=== PATIENT | female | born 1970 | race Caucasian/White ===

== ENCOUNTER 2022-10-06 19:10 | Outpatient (CLI) | payer OTHER, SELFPAY | END 2022-10-06 19:11 | disposition home or self-care (01) | PROVIDERS: Visit Provider Emergency Medicine Emergency Medical Services | DX: S09.93XA Unspecified injury of face, initial encounter (principal); V89.2XXA Person injured in unspecified motor-vehicle accident, traffic, initial encounter; Y92.410 Unspecified street and highway as the place of occurrence of the external cause | CPT/HCPCS: A0425; A0427 ==

== ENCOUNTER 2022-10-06 19:56 | Emergency (ER) | payer OTHER, SELFPAY ==
[2022-10-06] VITALS (14 sets, daily range): BP systolic 110–159; BP diastolic 41–90; PULSE 96–112; RESP 18–22; TEMP 36.8; O2SAT 95–99
--- NOTE | 2022-10-06 20:00 | ED.NURSE ---
Pt log-rolled and MD assessing back. Backboard removed.
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
[2022-10-06] MEDS: HYDROmorphone 0.5 mg/0.5 ml inj IVP (21:49)
== END 2022-10-06 22:50 | disposition home or self-care (01) ==
PROVIDERS: Emergency Provider Emergency Medicine Emergency Medical Services
DX: K13.29 Other disturbances of oral epithelium, including tongue (principal); V43.62XA Car passenger injured in collision with other type car in traffic accident, initial encounter
CPT/HCPCS: 36415; 70450; 71045; 72125; 76604; 76705; 93005; 93308; 96374; 99283; 99285; 99291; G0390; J1170

== ENCOUNTER 2023-01-12 09:29 | Outpatient (CLI) | payer OTHER, SELFPAY ==
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
== END 2023-01-12 09:30 | disposition home or self-care (01) ==
PROVIDERS: PCP Nurse Practitioner Family; Visit Provider Internal Medicine
DX: R13.10 Dysphagia, unspecified (principal)
CPT/HCPCS: 74230; 92611; T1013

== ENCOUNTER 2024-05-29 17:28 | Emergency (ER) | payer MEDICAID, SELFPAY ==
[2024-05-29] VITALS (7 sets, daily range): BP systolic 110–145; BP diastolic 58–74; PULSE 85–98; RESP 18; TEMP 37.2–38.8; O2SAT 94–95
[2024-05-29 18:54] LABS: PCR FLU A Negative PCR FLU A (Negative); PCR FLU B Negative PCR FLU B (Negative); PCR RSV Negative PCR RSV (Negative); SARS PCR* POSITIVE SARS-CoV-2 (Negative)
[2024-05-29] MEDS: METOCLOPRAMIDE HCL 5 MG/ML INJ 10 MG IVP (19:05)
[2024-05-29] MEDS: LACTATED RINGERS 1000 ML 1,000 ML IV (19:05)
[2024-05-29] MEDS: KETOROLAC 15 MG/ML inj IVP (19:07)
--- NOTE | 2024-05-29 19:09 | ED_ITS ---
HPI - General Adult General Date Seen: 05/29/24 Chief complaint: Fever Stated complaint: fever, vomiting Time Seen by Provider: 05/29/24 18:31 Source: patient and edge polisher Mode of arrival: ambulatory Limitations: no limitations History of Present Illness HPI narrative: Patient is a 54-year-old female with a history of depression, diabetes presenting to the emergency department for fevers, chills, headache, nausea. Patient states for the past 2 days she has been developing all the symptoms is states she has been having a severe headache and her forehead that is been getting worse. She states she has had headaches in the past but never this bad. She states she feels very dehydrated and every time she has tried to eat or drink anything since yesterday she would vomited back up. States she currently is feeling nauseated and feels like her whole body is sore. Has a colleague that has been having similar symptoms. Has not had any [id number] treatment yet. Denies abdominal pain, diarrhea, constipation, chest pain, shortness of breath. Does states she feels weak and fatigued. Is not having any numbness or vision changes. Related Data Home Medications ?Medication ?Instructions ?Recorded ?Confirmed Unobtainable 10/07/22 10/07/22 Allergies Allergy/AdvReac Type Severity Reaction Status Date / Time No Known Drug Allergies Allergy Verified 10/07/22 02:20 Review of Systems Status of ROS: Reports: 10 or more systems reviewed and unremarkable except as noted in History and below [facility] Medical History Dysphagia ?R13.10 - Dysphagia, unspecified (ICD-10) Social History Smoking Status: Never smoker Second hand tobacco smoke exposure: No How often do you have a drink containing alcohol: never AUDIT-C Alcohol total score: 0 Non-prescribed substance use: denies use Exam Narrative: Exam Narrative: Const: Well-nourished, Well-developed, in mild distress Eyes: PERRL, no conjunctival injection, and symmetrical lids HENT: Atraumatic external nose and ears. Moist mucous membranes. Neck: Symmetric, trachea midline, No thyromegaly. CVS: RRR, No murmurs or gallops. Peripheral pulses 2+ and equal in all extremities RESP: Unlabored respiratory effort. Clear to auscultation bilaterally. GI: Nontender/Nondistended, No rebound or guarding. MSK:Extremities w/o deformity, Normal Active ROM Skin: Warm, Dry. No rashes or lesions. Neuro: Normal Muscle tone, No focal neurological deficits. Psych: Awake, Alert, & Oriented x3. Appropriate mood and affect. Const: Vital Signs, click to edit/add: Vital Signs - 24 hr 05/29/24 17:56 05/29/24 19:07 05/29/24 19:49 Temperature 101.9 F H 101.9 F H 99.0 F Pulse Rate [Pulse Oximeter] 98 Respiratory Rate 18 18 Blood Pressure [Le ft Arm] 145/74 H Blood Pressure [Ri ght Upper Arm] 137/74 Pulse Oximetry 94 94 Oxygen Delivery Me thod Room Air Room Air 05/29/24 20:34 Temperature 99.0 F Pulse Rate [Pulse Oximeter] Respiratory Rate Blood Pressure [Le ft Arm] Blood Pressure [Ri ght Upper Arm] Pulse Oximetry Oxygen Delivery Me thod Course Vital Signs Vital signs: Initial Vital Signs Temperature 101.9 F H 05/29/24 17:56 Temperature Source Temporal Artery Scan 05/29/24 17:56 Pulse Rate 98 05/29/24 17:56 Respiratory Rate 18 05/29/24 17:56 Blood Pressure 137/74 05/29/24 17:56 Blood Pressure Mean 95 05/29/24 17:56 Pulse Oximetry 94 05/29/24 17:56 Oxygen Delivery Method Room Air 05/29/24 17:56 Vital Signs Temperature 101.9 F H 05/29/24 17:56 Pulse Rate 98 05/29/24 17:56 Respiratory Rate 18 05/29/24 17:56 Blood Pressure 137/74 05/29/24 17:56 Pulse Oximetry 94 05/29/24 17:56 Oxygen Delivery Method Room Air 05/29/24 17:56 Temperature 99.0 F 05/29/24 20:34 Pulse Rate 98 05/29/24 17:56 Respiratory Rate 18 05/29/24 19:49 Blood Pressure 145/74 H 05/29/24 19:49 Pulse Oximetry 94 05/29/24 19:49 Oxygen Delivery Method Room Air 05/29/24 19:49 Medications Administered Medications: Discontinued Medications Generic Name Dose Route Start Last Admin Trade Name Julieta PRN Reason Stop Dose Admin Diphenhydramine HCl 25 mg 05/29/24 18:55 05/29/24 19:10 Diphenhydramine 50 Mg/Ml Inj IVP 05/29/24 18:56 25 mg ONCE ONE Administration Lactated Ringer's 1,000 mls @ 1,000 mls/hr 05/29/24 18:55 05/29/24 20:35 Lactated Ringers 1000 Ml IV 05/29/24 19:54 Infused .Q1H ONE Infusion Ketorolac Tromethamine 15 mg 05/29/24 18:55 05/29/24 19:07 Ketorolac 15 Mg/Ml Inj IVP 05/29/24 18:56 15 mg ONCE ONE Administration Metoclopramide HCl 10 mg 05/29/24 18:55 05/29/24 19:05 Metoclopramide Hcl 5 Mg/Ml Inj IVP 05/29/24 18:56 10 mg ONCE ONE Administration Medical Decision Making [facility] Narrative Medical decision making narrative: Patient is a 54-year-old female presenting for what sounds like bile leak symptoms. She has a headache but has been gradually getting worse and the maximal impulse was not immediate so subarachnoid hemorrhage seems unlikely. COVID/flu/RSV test was done and came back positive while I was speaking to the patient's is likely the cause of all of her symptoms. She has been having a lot of vomiting dehydration dose I will do a CBC and BMP to make sure her electrolytes and other lab work showed no concerning findings. I do not believe headache imaging is necessary at this time is as symptoms are all again likely from her COVID. Will do a migraine cocktail including lactated Ringer's, Toradol, Reglan, Benadryl. Patient is feeling better after medication. CBC and BMP showed no concerning abnormalities potassium slightly low and this was replenished. He is she has some mild pancytopenia likely from the COVID. She has been well this time will be discharged. Toradol and Zofran prescribed through [employer]. She is agreeable to this plan. Lab Data Labs: Lab Results 05/29/24 05/29/24 Range/Units 18:03 19:12 WBC 3.26 L (4.50-11.00) K/uL RBC 3.94 L (4.00-5.20) m/uL Hgb 11.4 L (12.0-16.0) gm/dL Hct 34.8 (33.0-51.0) % MCV 88 (80-100) fL MCH 29 (26-34) pg MCHC 33 (32-36) gm/dL RDW Coeff of Shravan 13.1 (11.5-15.5) % Plt Count 123 L (140-440) K/uL Neut % (Auto) 69.4 (42.0-72.0) % Lymph % (Auto) 17.2 L (20-44) % Craig % (Auto) 11.3 H (0.0-11.0) % Eos % (Auto) 1.5 (0.0-7.0) % Baso % (Auto) 0.3 (0.0-3.0) % Neut # (Auto) 2.30 (1.7-7.0) K/uL Lymph # (Auto) 0.60 L (0.90-2.90) K/uL Craig # (Auto) 0.40 (0.00-0.90) K/UL Eos # (Auto) 0.00 (0.00-0.50) K/uL Baso # (Auto) 0.00 (0.00-0.30) K/uL Abs Immat Gran (auto) 0.00 (0.00-0.30) K/uL Imm/Tot Granulo (auto) 0.3 % Sodium 140 (135-149) mmol/L Potassium 3.2 L (3.6-5.1) mmol/L Chloride 106 (96-114) mmol/L Carbon Dioxide 29 (20-32) mmol/L Anion Gap 5 L (7-15) mEq/L BUN 14 (7-30) mg/dL Creatinine 0.6 (0.5-1.5) mg/dL Estimated GFR 106 ml/min Glucose 94 (60-115) mg/dL Calcium 9.7 (8.4-10.6) mg/dL SARS-CoV-2 (PCR) POSITIVE SARS-CoV-2 A (Negative) Influenza Type A (PCR) Negative PCR FLU A (Negative) Influenza Type B (PCR) Negative PCR FLU B (Negative) RSV (PCR) Negative PCR RSV (Negative) Discharge Plan Discharge Clinical Impression: COVID Patient Disposition: Home, Self-Care Condition: Improved Instructions: COVID-19 (Coronavirus Disease 2019) (ED) Additional Instructions: Take Tylenol and the Toradol for her headache. Make sure stay well hydrated use Zofran as needed for nausea. Return to emergency department for new or worsening symptoms. Make sure quarantine for 5 days from the onset of his symptoms. Do not take ibuprofen, naproxen, other NSAIDs while taking Toradol as they are the same class of drugs. Prescriptions: No Action Unobtainable Follow Up/Referrals: Gabrielle Avalos [Primary Care Provider] - Stand Alone Forms: [employer] Info Instructions
[2024-05-29] MEDS: diphenhydrAMINE 50 MG/ML inj 25 MG IVP (19:10)
[2024-05-29 19:36] LABS: Basophils Percent Auto 0.3 % (0.0-3.0); Eosinophils Percent Auto 1.5 % (0.0-7.0); Hematocrit 34.8 % (33.0-51.0); Hemoglobin* 11.4 gm/dL (12.0-16.0); Immature Granulocytes Pct Auto 0.3 %; Lymphocytes Percent Auto 17.2 % (20-44); Mean Corpuscular HGB Conc 33 gm/dL (32-36); Mean Corpuscular Hemoglobin 29 pg (26-34); Mean Corpuscular Volume 88 fL (80-100); Monocytes Percent Auto 11.3 % (0.0-11.0); Neutrophils Percent Auto 69.4 % (42.0-72.0); Platelet Count* 123 K/uL (140-440); RDW Coefficient of Variation % 13.1 % (11.5-15.5); Red Blood Count 3.94 m/uL (4.00-5.20); White Blood Count* 3.26 K/uL (4.50-11.00)
[2024-05-29 19:39] LABS: Slide Review Reflex No
[2024-05-29 19:42] LABS: Chloride* 106 mmol/L (96-114); Potassium* 3.2 mmol/L (3.6-5.1); Sodium* 140 mmol/L (135-149)
[2024-05-29 19:44] LABS: Creatinine* 0.6 mg/dL (0.5-1.5); Estimated Glomerular Filt Rate 106 ml/min
[2024-05-29 19:45] LABS: Anion Gap 5 mEq/L (7-15); Blood Urea Nitrogen* 14 mg/dL (7-30); Calcium* 9.7 mg/dL (8.4-10.6); Carbon Dioxide* 29 mmol/L (20-32); Glucose* 94 mg/dL (60-115)
[2024-05-29] MEDS: POTASSIUM CHLORIDE 10 MEQ CAPSULE ER 40 MEQ PO (20:50)
== END 2024-05-29 21:17 | disposition home or self-care (01) ==
PROVIDERS: Emergency Provider Student in an Organized Health Care Education/Training Program; PCP Nurse Practitioner Family
DX: U07.1 COVID-19 (principal)
CPT/HCPCS: 36415; 80048; 85025; 87631; 94761; 96374; 96375; 99283; 99284; A9270; J1200; J1885; J2765; J7120

== ENCOUNTER 2024-06-03 15:34 | Emergency (ER) | payer MEDICAID, SELFPAY ==
[2024-06-03 15:48] VITALS: BP 118/74; PULSE 68; RESP 14; TEMP 35.9; O2SAT 97
[2024-06-03 17:41] LABS: SARS Antigen* Negative (Negative)
--- NOTE | 2024-06-03 18:34 | ED.GENADULT ---
HPI - General Adult General Chief complaint: Unspecified Complaint, Adult Stated complaint: Covid - needs work note Time Seen by Provider: 06/03/24 18:14 History of Present Illness HPI narrative: This 54-year-old female is coming in simply to receive a note allowing her to return to work the. She apparently was positive for COVID and wants a note stating that she is now negative and okay to return to work. Related Data Home Medications ?Medication ?Instructions ?Recorded ?Confirmed Unobtainable 10/07/22 10/07/22 Allergies Allergy/AdvReac Type Severity Reaction Status Date / Time No Known Drug Allergies Allergy Verified 10/07/22 02:20 Review of Systems Status of ROS: Reports: 10 or more systems reviewed and unremarkable except as noted in History and below Narrative: Constitutional: No fevers, no weight gain or loss. Eyes: No discharge. No vision changes. HENT: No congestion, no sore throat, no ear pain. Cardiovascular: No chest pain, no palpitations. Respiratory: No shortness of breath, no wheezes, no cough. Gastrointestinal: No abdominal pain, no vomiting, no diarrhea. Genitourinary: No dysuria, no hematuria. Musculoskeletal: Normal range of motion. Skin: No rashes, no pruritis. Neurological: No dizziness, weakness, sensory change, speech change. Endo/Heme/Allergies: No bruising or bleeding. No polydipsia. Pysch: no suicidality, no anxiety, no insomnia. All other systems reviewed and are negative. [facility] Medical History Dysphagia ?R13.10 - Dysphagia, unspecified (ICD-10) Social History Smoking Status: Never smoker Second hand tobacco smoke exposure: No How often do you have a drink containing alcohol: never AUDIT-C Alcohol total score: 0 Non-prescribed substance use: denies use Exam Narrative: Exam Narrative: Constitutional: Well-developed, well-nourished, no acute distress. HEENT: Normocephalic, atraumatic. Neck: Normal range of motion. Nontender. Supple. Heart: Intact distal pulses. Lungs: No chest discomfort. No wheezes, rhonchi, or rales. Abdomen: Nontender. Back: Normal range of motion. Extremities: Normal range of motion. No injury. Skin: Intact. No rash. Warm. No erythema or pallor. Neurologic: No altered sensation. No weakness. Alert and oriented. Psychiatric: No suicidality. No anxiety or depression. No insomnia. Nursing notes and vitals signs are reviewed. Const: Vital Signs, click to edit/add: Vital Signs - 24 hr 06/03/24 15:48 Temperature 96.7 F L Pulse Rate [Pulse Oximeter] 68 Respiratory Rate 14 Blood Pressure [Ri ght Upper Arm] 118/74 Pulse Oximetry 97 Oxygen Delivery Me thod Room Air Course Vital Signs Vital signs: Initial Vital Signs Temperature 96.7 F L 06/03/24 15:48 Temperature Source Temporal Artery Scan 06/03/24 15:48 Pulse Rate 68 06/03/24 15:48 Pulse Rhythm Regular 06/03/24 15:48 Respiratory Rate 14 06/03/24 15:48 Blood Pressure 118/74 06/03/24 15:48 Blood Pressure Mean 88 06/03/24 15:48 Blood Pressure Position Sitting 06/03/24 15:48 Pulse Oximetry 97 06/03/24 15:48 Oxygen Delivery Method Room Air 06/03/24 15:48 Vital Signs Temperature 96.7 F L 06/03/24 15:48 Pulse Rate 68 06/03/24 15:48 Respiratory Rate 14 06/03/24 15:48 Blood Pressure 118/74 06/03/24 15:48 Pulse Oximetry 97 06/03/24 15:48 Oxygen Delivery Method Room Air 06/03/24 15:48 Temperature 96.7 F L 06/03/24 15:48 Pulse Rate 68 06/03/24 15:48 Respiratory Rate 14 06/03/24 15:48 Blood Pressure 118/74 06/03/24 15:48 Pulse Oximetry 97 06/03/24 15:48 Oxygen Delivery Method Room Air 06/03/24 15:48 Medical Decision Making MDM Narrative Medical decision making narrative: This patient is simply requesting a return to work note and presents to the emergency department for this reason only. A COVID test was administered and returns negative. I did provide such a note as requested and the patient is okay to be discharged to resume activity as tolerated. Lab Data Labs: Lab Results 06/03/24 Range/Units 16:45 SARS-CoV-2 Ag (Rapid) Negative (Negative) Discharge Plan Discharge Clinical Impression: Lab test negative for COVID-19 virus Patient Disposition: Home, Self-Care Condition: Stable Additional Instructions: Activity as tolerated. Use [id number] medicines as needed and directed. Okay to return to work. Follow up with MD return if worsening. Prescriptions: No Action Unobtainable Follow Up/Referrals: Gabrielle Avalos [Primary Care Provider] - Stand Alone Forms: [employer] Info Instructions
== END 2024-06-03 18:44 | disposition home or self-care (01) ==
LOC: ED 18:40
PROVIDERS: Family Medicine; Emergency Provider Emergency Medicine Emergency Medical Services; PCP Nurse Practitioner Family
DX: Z09 Encounter for follow-up examination after completed treatment for conditions other than malignant neoplasm (principal)
CPT/HCPCS: 87426; 99282; 99284

== ENCOUNTER 2024-07-24 11:37 | Emergency (ER) | payer MEDICAID, SELFPAY ==
[2024-07-24 11:57] VITALS: BP 100/70; PULSE 100; RESP 18; TEMP 37.3; O2SAT 98; BMI 48.3
[2024-07-24] MEDS: 0.9 % SODIUM CHLORIDE 500 ML 500 ML IV (12:42)
[2024-07-24] MEDS: ONDANSETRON 2 MG/ML inj 4 MG IVP (12:42)
--- NOTE | 2024-07-24 12:43 | ED_ITS ---
HPI - Nausea/Vomiting/Diarrhea General Chief complaint: Nausea/Vomiting Stated complaint: felt sick at work, blood pressure high Time Seen by Provider: 07/24/24 12:17 History of Present Illness HPI Narrative: This 54-year-old female comes in because of onset of nausea and vomiting while at work just prior to arrival. She does not report any diarrhea or fevers. She arrives here with normal vital signs however her systolic pressure is a bit soft at 100/70. She states that she has diabetes but has not checked her glucose for a month or more. Related Data Home Medications ?Medication ?Instructions ?Recorded ?Confirmed levothyroxine 25 mcg capsule 20 mcg PO QDAY 06/27/24 07/03/24 metformin 500 mg tablet 500 mg PO TID 06/27/24 07/03/24 Previous Rx's ?Medication ?Instructions ?Recorded isosorbide dinitrate 5 mg tablet 10 mg (2 x 5 mg) PO BID #60 tabs 07/17/24 ondansetron HCl 4 mg tablet 4 mg PO Q6H #10 tabs 07/24/24 Allergies Allergy/AdvReac Type Severity Reaction Status Date / Time No Known Drug Allergies Allergy Verified 07/03/24 15:24 Review of Systems Status of ROS: Reports: 10 or more systems reviewed and unremarkable except as noted in History and below Narrative: Constitutional: No fevers, no weight gain or loss. Eyes: No discharge. No vision changes. HENT: No congestion, no sore throat, no ear pain. Cardiovascular: No chest pain, no palpitations. Respiratory: No shortness of breath, no wheezes, no cough. Gastrointestinal: No abdominal pain, no diarrhea. Nausea and vomiting as described above. Genitourinary: No dysuria, no hematuria. Musculoskeletal: Normal range of motion. Skin: No rashes, no pruritis. Neurological: No dizziness, weakness, sensory change, speech change. Endo/Heme/Allergies: No bruising or bleeding. No polydipsia. Pysch: no suicidality, no anxiety, no insomnia. All other systems reviewed and are negative. [facility] Medical History (Updated 07/24/24 @ 13:50 by Juan Carlos Bustos MD) Esophageal dysmotility ?K22.4 - Dyskinesia of esophagus (ICD-10) Dysphagia ?R13.10 - Dysphagia, unspecified (ICD-10) Social History Smoking Status: Never smoker Second hand tobacco smoke exposure: No How often do you have a drink containing alcohol: never AUDIT-C Alcohol total score: 0 Non-prescribed substance use: denies use Little interest or pleasure in doing things: not at all Feeling down, depressed, or hopeless: not at all Exam Narrative: Exam Narrative: Constitutional: Well-developed, well-nourished, no acute distress. HEENT: Normocephalic, atraumatic. Neck: Normal range of motion. Nontender. Supple. Heart: Regular. No murmurs. Normal rate. Intact distal pulses. Lungs: Clear to auscultation. No chest discomfort. No wheezes, rhonchi, or rales. Abdomen: Normal bowel sounds. Nontender. No rebound tenderness. Genitalia: Deferred. Back: No midline tenderness. Normal range of motion. Extremities: Normal range of motion. No injury. Skin: Intact. No rash. Warm. No erythema or pallor. Neurologic: No altered sensation. No weakness. Alert and oriented. Psychiatric: No suicidality. No anxiety or depression. No insomnia. Nursing notes and vitals signs are reviewed. Const: Vital Signs, click to edit/add: Vital Signs - 24 hr 07/24/24 11:57 Temperature 99.2 F Pulse Rate [Pulse Oximeter] 100 Respiratory Rate 18 Blood Pressure [Ri ght Upper Arm] 100/70 Pulse Oximetry 98 Oxygen Delivery Me thod Room Air Course Vital Signs Vital signs: Initial Vital Signs Temperature 99.2 F 07/24/24 11:57 Temperature Source Temporal Artery Scan 07/24/24 11:57 Pulse Rate 100 07/24/24 11:57 Pulse Rhythm Regular 07/24/24 11:57 Respiratory Rate 18 07/24/24 11:57 Blood Pressure 100/70 07/24/24 11:57 Blood Pressure Mean 80 07/24/24 11:57 Blood Pressure Position Sitting 07/24/24 11:57 Pulse Oximetry 98 07/24/24 11:57 Oxygen Delivery Method Room Air 07/24/24 11:57 Vital Signs Temperature 99.2 F 07/24/24 11:57 Pulse Rate 100 07/24/24 11:57 Respiratory Rate 18 07/24/24 11:57 Blood Pressure 100/70 07/24/24 11:57 Pulse Oximetry 98 07/24/24 11:57 Oxygen Delivery Method Room Air 07/24/24 11:57 Temperature 99.2 F 07/24/24 11:57 Pulse Rate 100 07/24/24 11:57 Respiratory Rate 18 07/24/24 11:57 Blood Pressure 100/70 07/24/24 11:57 Pulse Oximetry 98 07/24/24 11:57 Oxygen Delivery Method Room Air 07/24/24 11:57 Medications Administered Medications: Discontinued Medications Generic Name Dose Route Start Last Admin Trade Name Julieta PRN Reason Stop Dose Admin Sodium Chloride 500 mls @ 500 mls/hr 07/24/24 12:21 07/24/24 12:42 0.9 % Sodium Chloride 500 Ml IV 07/24/24 13:20 500 mls/hr .Q1H ONE Administration Ondansetron HCl 4 mg 07/24/24 12:21 07/24/24 12:42 Ondansetron 2 Mg/Ml Inj IVP 07/24/24 12:22 4 mg ONCE ONE Administration MDM - Nausea/Vomiting/Diarrhea MDM Narrative Medical decision making narrative: This patient comes in with onset of nausea and vomiting prior to arrival. She does have a systolic value of 100 upon arrival but does not report lightheadedness. She has not had any fever or diarrhea. An IV was established and she did receive 500 mL of normal saline intravenously. This also included a dose of Zofran 4 mg. Labs are acquired and these returned with reassuring findings. She does have diabetes and has not checked her blood glucose but this returns at 135 today. She is okay to be discharged home and states that she is feeling better. I did provide a prescription for Zofran. Lab Data Labs: Lab Results 07/24/24 Range/Units 12:35 WBC 4.26 L (4.50-11.00) K/uL RBC 4.01 (4.00-5.20) m/uL Hgb 11.6 L (12.0-16.0) gm/dL Hct 35.1 (33.0-51.0) % MCV 88 (80-100) fL MCH 29 (26-34) pg MCHC 33 (32-36) gm/dL RDW Coeff of Shravan 13.1 (11.5-15.5) % Plt Count 139 L (140-440) K/uL Neut % (Auto) 85.3 H (42.0-72.0) % Lymph % (Auto) 9.6 L (20-44) % Dare % (Auto) 4.7 (0.0-11.0) % Eos % (Auto) 0.2 (0.0-7.0) % Baso % (Auto) 0.2 (0.0-3.0) % Neut # (Auto) 3.60 (1.7-7.0) K/uL Lymph # (Auto) 0.40 L (0.90-2.90) K/uL Dare # (Auto) 0.20 (0.00-0.90) K/UL Eos # (Auto) 0.00 (0.00-0.50) K/uL Baso # (Auto) 0.00 (0.00-0.30) K/uL Abs Immat Gran (auto) 0.00 (0.00-0.30) K/uL Imm/Tot Granulo (auto) 0.0 % Sodium 137 (135-149) mmol/L Potassium 3.3 L (3.6-5.1) mmol/L Chloride 101 (96-114) mmol/L Carbon Dioxide 28 (20-32) mmol/L Anion Gap 8 (7-15) mEq/L BUN 15 (7-30) mg/dL Creatinine 0.8 (0.5-1.5) mg/dL Estimated Creat Clear 71.50 Estimated GFR 87 ml/min Glucose 135 H (60-115) mg/dL Calcium 9.2 (8.4-10.6) mg/dL Discharge Plan Discharge Clinical Impression: Gastroenteritis Additional Instructions: Take medication as prescribed and needed. Take fluids frequently and increase diet otherwise as tolerated. Follow up with MD return if worsening. Prescriptions: New ondansetron HCl 4 mg tablet 4 mg PO Q6H Qty: 10 0RF No Action metformin 500 mg tablet 500 mg PO TID levothyroxine 25 mcg capsule 20 mcg PO QDAY isosorbide dinitrate 5 mg tablet 10 mg PO BID Qty: 60 0RF Rx Instructions: allow nitrate-free interval of 12-14 hrs per 24-hr period Follow Up/Referrals: Marin Boggs MD [Primary Care Provider] - Stand Alone Forms: [employer] Info Instructions
[2024-07-24 12:51] LABS: Basophils Percent Auto 0.2 % (0.0-3.0); Eosinophils Percent Auto 0.2 % (0.0-7.0); Hematocrit 35.1 % (33.0-51.0); Hemoglobin* 11.6 gm/dL (12.0-16.0); Lymphocytes Percent Auto 9.6 % (20-44); Mean Corpuscular HGB Conc 33 gm/dL (32-36); Mean Corpuscular Hemoglobin 29 pg (26-34); Mean Corpuscular Volume 88 fL (80-100); Monocytes Percent Auto 4.7 % (0.0-11.0); Neutrophils Percent Auto 85.3 % (42.0-72.0); Platelet Count* 139 K/uL (140-440); RDW Coefficient of Variation % 13.1 % (11.5-15.5); Red Blood Count 4.01 m/uL (4.00-5.20); White Blood Count* 4.26 K/uL (4.50-11.00)
[2024-07-24 12:54] LABS: Slide Review Reflex No
[2024-07-24 13:12] LABS: Chloride* 101 mmol/L (96-114); Potassium* 3.3 mmol/L (3.6-5.1); Sodium* 137 mmol/L (135-149)
[2024-07-24 13:15] LABS: Anion Gap 8 mEq/L (7-15); Blood Urea Nitrogen* 15 mg/dL (7-30); Carbon Dioxide* 28 mmol/L (20-32); Creatinine* 0.8 mg/dL (0.5-1.5); Estimated Glomerular Filt Rate 87 ml/min; Glucose* 135 mg/dL (60-115)
[2024-07-24 13:16] LABS: Calcium* 9.2 mg/dL (8.4-10.6)
== END 2024-07-24 14:04 | disposition home or self-care (01) ==
PROVIDERS: Emergency Provider Emergency Medicine Emergency Medical Services; PCP Internal Medicine
DX: K52.9 Noninfective gastroenteritis and colitis, unspecified (principal)
CPT/HCPCS: 36415; 80048; 85025; 96361; 96374; 99284; J2405; J7030

== ENCOUNTER 2024-08-02 17:06 | Emergency (ER) | payer MEDICAID, SELFPAY ==
[2024-08-02 17:14] VITALS: BP 105/68; PULSE 75; RESP 16; TEMP 36.6; O2SAT 98; BMI 37.6
--- NOTE | 2024-08-02 17:37 | ED_ITS ---
HPI - General Adult General Chief complaint: Unspecified Complaint, Adult Stated complaint: Esophagus obstruction, needs med refill Time Seen by Provider: 08/02/24 17:10 History of Present Illness HPI narrative: Patient had been given isosorbide?dintrate 5mg to help her digest food due to a esophagus issue. She has a procedure set up for Monday to help with this but has run out of medication. She requests a refill to help her make it to that appointment. 54-year-old woman presenting to the emergency department with request for refill of isosorbide dinitrate for treatment of esophageal dysmotility. She reports that it is helping a little bit. She has not been experiencing lightheadedness or dizziness when taking this medication. She does report that has a procedure scheduled after this weekend, today is Monday, on Monday to have what sounds like a dilatation procedure. Said she had asked for refill but was unable to be done. She is not having trouble managing secretions at this moment nor pain. Later review of record shows request for this medication. Primary care provider was concerned about trending low blood pressures and recommending evaluation 1st before represcribing. Looks to have been unaware at that point that dilatation procedure had been arranged. Related Data Home Medications ?Medication ?Instructions ?Recorded ?Confirmed levothyroxine 25 mcg capsule 20 mcg PO QDAY 06/27/24 07/03/24 metformin 500 mg tablet 500 mg PO TID 06/27/24 07/03/24 Previous Rx's ?Medication ?Instructions ?Recorded ondansetron HCl 4 mg tablet 4 mg PO Q6H #10 tabs 07/24/24 isosorbide dinitrate 10 mg tablet 10 mg PO BID #60 tabs 08/02/24 isosorbide dinitrate 5 mg tablet 10 mg (2 x 5 mg) PO BID #14 tabs 08/02/24 Allergies Allergy/AdvReac Type Severity Reaction Status Date / Time No Known Drug Allergies Allergy Verified 07/03/24 15:24 Review of Systems Status of ROS: Reports: 6 or more systems reviewed and unremarkable except as noted in History and below [facility] Medical History Esophageal dysmotility ?K22.4 - Dyskinesia of esophagus (ICD-10) Dysphagia ?R13.10 - Dysphagia, unspecified (ICD-10) Social History Smoking Status: Never smoker Second hand tobacco smoke exposure: No How often do you have a drink containing alcohol: never AUDIT-C Alcohol total score: 0 Non-prescribed substance use: denies use Exam Narrative: Exam Narrative: Pleasant. NAD. Breathing easily. Appears to be swelling without difficulty and phonating without difficulty. Heart in regular rate and rhythm. Const: Vital Signs, click to edit/add: Vital Signs - 24 hr 08/02/24 17:14 Temperature 97.8 F Pulse Rate [Pulse Oximeter] 75 Respiratory Rate 16 Blood Pressure [Ri ght Upper Arm] 105/68 Pulse Oximetry 98 Oxygen Delivery Me thod Room Air Documenting provider has reviewed patient's vital signs: yes Course Vital Signs Vital signs: Initial Vital Signs Temperature 97.8 F 08/02/24 17:14 Temperature Source Temporal Artery Scan 08/02/24 17:14 Pulse Rate 75 08/02/24 17:14 Respiratory Rate 16 08/02/24 17:14 Blood Pressure 105/68 08/02/24 17:14 Blood Pressure Mean 80 08/02/24 17:14 Pulse Oximetry 98 08/02/24 17:14 Oxygen Delivery Method Room Air 08/02/24 17:14 Vital Signs Temperature 97.8 F 08/02/24 17:14 Pulse Rate 75 08/02/24 17:14 Respiratory Rate 16 08/02/24 17:14 Blood Pressure 105/68 08/02/24 17:14 Pulse Oximetry 98 08/02/24 17:14 Oxygen Delivery Method Room Air 08/02/24 17:14 Temperature 97.8 F 08/02/24 17:14 Pulse Rate 75 08/02/24 17:14 Respiratory Rate 16 08/02/24 17:14 Blood Pressure 105/68 08/02/24 17:14 Pulse Oximetry 98 08/02/24 17:14 Oxygen Delivery Method Room Air 08/02/24 17:14 Medical Decision Making MDM Narrative Medical decision making narrative: Reviewed records. Appears to need a simple medication refill and has established the follow-up appointment as requested. She does have lower blood pressure as per concern. This has been trended for some time now. She reports however to be asymptomatic; tolerating quite well. Due to time of evening and pharmacy closed, be giving her the usual dose of now 10 mg of isosorbide dinitrate here in the emergency department and sending in refill. See patient discharge plan for further discussion Medical Records Medical records reviewed: Yes I reviewed the patient's medical records Discharge Plan Discharge Clinical Impression: Encounter for medication refill, Esophageal dysmotility Additional Instructions: Please follow-up on Monday with [facility] as scheduled. I hope this procedure goes quite well for you. Please report symptoms of lightheadedness or dizziness with this medication. Por favor, acuda a harley oriana de seguimiento el con el [facility] [place] seg?n lo programado. Espero que anuja procedimiento le salga marisabel. Por favor, informe si tiene s?ntomas de mareos o v?rtigo con anuja medicamento. Prescriptions: New isosorbide dinitrate 10 mg tablet 10 mg PO BID Qty: 60 2RF Rx Instructions: allow nitrate-free interval of 12-14 hrs per 24-hr period No Action metformin 500 mg tablet 500 mg PO TID levothyroxine 25 mcg capsule 20 mcg PO QDAY ondansetron HCl 4 mg tablet 4 mg PO Q6H Qty: 10 0RF isosorbide dinitrate 5 mg tablet 10 mg PO BID Qty: 14 0RF Rx Instructions: allow nitrate-free interval of 12-14 hrs per 24-hr period Follow Up/Referrals: Marin Boggs MD [Primary Care Provider] - Stand Alone Forms: [employer] Info Instructions
[2024-08-02] MEDS: ISOSORBIDE DINITRATE 10 MG TABLET PO (17:56)
[2024-08-02 18:00] VITALS: BP 105/68; PULSE 75; RESP 16; TEMP 36.6
== END 2024-08-02 18:00 | disposition home or self-care (01) ==
PROVIDERS: Emergency Provider Family Medicine; PCP Internal Medicine
DX: K22.4 Dyskinesia of esophagus (principal); Z76.0 Encounter for issue of repeat prescription
CPT/HCPCS: 99282; A9270

== ENCOUNTER 2024-08-27 11:03 | Outpatient (CLI) | payer MEDICAID, SELFPAY ==
--- NOTE | 2024-08-27 11:15 | CRLHL7_ITS ---
For Patients: As a result of the Century Cures Act, medical imaging exams and procedure reports are released immediately into your electronic medical record. You may view this report before your referring provider. If you have questions, please contact your health care provider. Technique: Double-contrast esophagram performed after the uneventful administration of effervescent crystals and thick barium. Fluoroscopy time 1.09 minutes. Indication: Dysphagia, persistent after EGD with dilation Comparison: 04/06/2023 Findings: The esophagus is distended and the proximal and mid portions. Numerous tertiary contractions are present with corkscrewing involving the distal esophagus. Delayed transit of contrast through the esophagus noted into the stomach. Barium tablet remains at the GE junction and does not pass into the stomach during the duration of the study. Reflux not observed. Impression: Reflux esophagitis of the distal esophagus with narrowing resulting in non clearance of barium tablet. Associated dilation of the proximal and mid esophagus. Dictated by Les Hawkins MD @ 08/27/2024 12:36:27 PM (Electronically Signed)
== END 2024-08-27 11:04 | disposition home or self-care (01) ==
LOC: RAD 11:04
PROVIDERS: PCP Internal Medicine; Visit Provider Internal Medicine
DX: R13.10 Dysphagia, unspecified (principal); K21.00 Gastro-esophageal reflux disease with esophagitis, without bleeding
CPT/HCPCS: 74221; T1013

== ENCOUNTER 2024-09-28 18:53 | Emergency (ER) | payer OTHER, SELFPAY ==
--- OUTSIDE RECORDS SUMMARY | 2024-09-28 18:55 | XMS_ITS | Continuity of Care Document ---
Author Name NwHIN User [employer]-a llowed Address Unknown Organization Unknown Address Unknown Procedures FILTER APPLIED:Only known Procedures with Onset Date within the last 5 years Procedure Date Procedure Provider Additiona l Information Status MOTION FLUOROSCOPY/SWALLOW (60566) Completed X-RAY XM SWLNG FUNCJ C+ (83220) Completed X-RAY EXAM CHEST 1 VIEW (30703) Completed CT NECK SPINE W/O DYE (78127) Completed CRITICAL CARE FIRST HOUR (26075) Completed ECHO EXAM OF ABDOMEN (98360) Completed ELECTROCARDIOGRAM TRACING (72744) Completed TTE F-UP OR LMTD (25195) Completed THER/PROPH/DIAG INJ IV PUSH (15358) Completed EMERGENCY DEPT VISIT LOW MDM (96811) Completed CT HEAD/BRAIN W/O DYE (08382) Completed ROUTINE VENIPUNCTURE (98643) Completed US EXAM CHEST (60427) Co mpleted Encounters FILTER APPLIED:Only known Encounters with Admission Date within the last 5 years Encounter Location Admission Discharge Billing Code [facility] Donna [facility] Outpatient Gabrielle Avalos Outpatient Car[facility] Noland
[2024-09-28 18:58] VITALS: BP 128/76; PULSE 69; RESP 18; TEMP 36.7; O2SAT 97; BMI 48.3
--- OUTSIDE RECORDS SUMMARY | 2024-09-28 21:03 | XMS_ITS | Continuity of Care Document ---
Author Name NwHIN User [employer]-a llowed Address Unknown Organization Unknown Address Unknown Procedures FILTER APPLIED:Only known Procedures with Onset Date within the last 5 years Procedure Date Procedure Provider Additiona l Information Status MOTION FLUOROSCOPY/SWALLOW (35031) Completed X-RAY XM SWLNG FUNCJ C+ (11011) Completed X-RAY EXAM CHEST 1 VIEW (65019) Completed CT NECK SPINE W/O DYE (21169) Completed CRITICAL CARE FIRST HOUR (57928) Completed ECHO EXAM OF ABDOMEN (23689) Completed ELECTROCARDIOGRAM TRACING (28890) Completed TTE F-UP OR LMTD (60965) Completed THER/PROPH/DIAG INJ IV PUSH (51293) Completed EMERGENCY DEPT VISIT LOW MDM (55825) Completed CT HEAD/BRAIN W/O DYE (79153) Completed ROUTINE VENIPUNCTURE (72732) Completed US EXAM CHEST (08324) Co mpleted Encounters FILTER APPLIED:Only known Encounters with Admission Date within the last 5 years Encounter Location Admission Discharge Billing Code [employer] Out[facility] N[facility]and
--- NOTE | 2024-09-28 21:08 | ED_ITS ---
HPI - General Adult General Chief complaint: Unspecified Complaint, Adult Stated complaint: difficulty eating, ran out of medication Time Seen by Provider: 09/28/24 20:30 History of Present Illness HPI narrative: Pt ran out of medication, Isosorbide Dinitrate, and is here for a refill. Says she cannot eat without this medication. 54-year-old woman presenting to the emergency department with a history of esophageal dysmotility and takes regularly dosed isosorbide dinitrate to help. Does have a history of surgical intervention/dilatation and she notes that she has an upcoming appointment on the (later review of records indicate the 18) as she has been having more difficulty. She takes very small amounts of food she says but that this isosorbide dinitrate is actually helpful. She is not feeling lightheaded and apparently has been taking this medication typically 4 times a day she says as needed instead at the 3 times a day. Due to this frequency of dosing she is now out and over this weekend is unable to get a refill. Does not appear that she has been taking calcium channel blockers or other. Related Data Home Medications ?Medication ?Instructions ?Recorded ?Confirmed levothyroxine 25 mcg capsule 20 mcg PO QDAY 06/27/24 09/28/24 omeprazole 40 mg capsule,delayed 40 mg PO BID 08/22/24 09/28/24 release atorvastatin 20 mg tablet 20 mg PO DAILY 09/28/24 09/28/24 Previous Rx's ?Medication ?Instructions ?Recorded ondansetron HCl 4 mg tablet 4 mg PO Q6H #10 tabs 07/24/24 isosorbide dinitrate 10 mg tablet 10 mg PO TID #60 tabs 09/03/24 isosorbide dinitrate 10 mg tablet 10 mg PO TID PRN Difficulty 09/28/24 swallowing #90 tabs Allergies Allergy/AdvReac Type Severity Reaction Status Date / Time No Known Drug Allergies Allergy Verified 09/28/24 19:03 Review of Systems Status of ROS: Reports: 6 or more systems reviewed and unremarkable except as noted in History and below [facility] Medical History Esophageal dysmotility ?K22.4 - Dyskinesia of esophagus (ICD-10) Dysphagia ?R13.10 - Dysphagia, unspecified (ICD-10) Social History Smoking Status: Never smoker Second hand tobacco smoke exposure: No How often do you have a drink containing alcohol: never AUDIT-C Alcohol total score: 0 Non-prescribed substance use: denies use service: No Exam Narrative: Exam Narrative: Pleasant. NAD. Seen in triage room in very busy emergency department. Breathing easily. Vitals noted WNL. Const: Vital Signs, click to edit/add: Vital Signs - 24 hr 09/28/24 18:58 Temperature 98.1 F Pulse Rate [Right Pulse Oximeter] 69 Respiratory Rate 18 Blood Pressure [Ri ght Upper Arm] 128/76 Pulse Oximetry 97 Oxygen Delivery Me thod Room Air Documenting provider has reviewed patient's vital signs: yes Course Vital Signs Vital signs: Initial Vital Signs Temperature 98.1 F 09/28/24 18:58 Temperature Source Temporal Artery Scan 09/28/24 18:58 Pulse Rate 69 09/28/24 18:58 Pulse Rhythm Regular 09/28/24 18:58 Respiratory Rate 18 09/28/24 18:58 Blood Pressure 128/76 09/28/24 18:58 Blood Pressure Mean 93 09/28/24 18:58 Blood Pressure Position Sitting 09/28/24 18:58 Pulse Oximetry 97 09/28/24 18:58 Oxygen Delivery Method Room Air 09/28/24 18:58 Vital Signs Temperature 98.1 F 09/28/24 18:58 Pulse Rate 69 09/28/24 18:58 Respiratory Rate 18 09/28/24 18:58 Blood Pressure 128/76 09/28/24 18:58 Pulse Oximetry 97 09/28/24 18:58 Oxygen Delivery Method Room Air 09/28/24 18:58 Temperature 98.1 F 09/28/24 18:58 Pulse Rate 69 09/28/24 18:58 Respiratory Rate 18 09/28/24 18:58 Blood Pressure 128/76 09/28/24 18:58 Pulse Oximetry 97 09/28/24 18:58 Oxygen Delivery Method Room Air 09/28/24 18:58 Medications Administered Medications: Discontinued Medications Generic Name Dose Route Start Last Admin Trade Name Freq PRN Reason Stop Dose Admin Isosorbide Dinitrate 10 mg 09/28/24 20:53 09/28/24 21:19 Isosorbide Dinitrate 10 Mg Tablet PO 10 mg TID-QID PRN Administration swallowing difficulty Medical Decision Making MDM Narrative Medical decision making narrative: Discussed concerns of potential excessive medication ingestion in this case without enough time for washout. Might benefit from the longer-acting medication. Due to time of night and the weekend, given medication here and for through the weekend as she says would not be able to get at her pharmacy. See patient discharge plan for further discussion Please follow-up on the as planned. Please follow-up with your primary care provider for more plans/refills. Since you are needing this medication more frequently than recommended/prescribed, please discuss other options available for care or alternate dosing with your primary care provider. Note that dosing is different than the 20 mg tablets you were getting. You are being given 10 mg tablets in this prescription. We will give you 8 tablets from our stock here and sending in the rest in a prescription. Discharge Plan Discharge Clinical Impression: Dysphagia Patient Disposition: Home, Self-Care Condition: Stable Additional Instructions: Please follow-up on the as planned. Please follow-up with your primary care provider for more plans/refills. Since you are needing this medication more frequently than recommended/prescribed, please discuss other options available for care or alternate dosing with your primary care provider. Note that dosing is different than the 20 mg tablets you were getting. You are being given 10 mg tablets in this prescription. We will give you 8 tablets from our stock here and sending in the rest in a prescription. It is nice to see you. Por favor, kathy un seguimiento el d?a 14 charla estaba previsto. Kathy un seguimiento con membreno m?dico de cabecera para obtener m?s planes/recargas. Dado que necesita anuja medicamento con m?s frecuencia de lo recomendado/prescrito, hable con membreno m?dico de cabecera sobre otras opciones disponibles para membreno atenci?n o dosis alternativas. Tenga en cuenta que la dosis es diferente a la de los comprimidos de 20 mg que estaba recibiendo. En esta receta le est?n dando comprimidos de 10 mg. Le daremos 8 comprimidos de nuestro stock aqu? y le enviaremos el lianna en harley receta. Es un placer verte.os 8 tabletas de nuestro stock aqu? y le enviaremos el lianna en harley receta. Es un placer verte. Activity Level: No Restrictions Discharge Diet: Regular Prescriptions: New isosorbide dinitrate 10 mg tablet 10 mg PO TID PRN (Reason: Difficulty swallowing) Qty: 90 0RF Rx Instructions: allow nitrate-free interval of 12-14 hrs per 24-hr period No Action levothyroxine 25 mcg capsule 20 mcg PO QDAY omeprazole 40 mg capsule,delayed release(DR/EC) 40 mg PO BID atorvastatin 20 mg tablet 20 mg PO DAILY ondansetron HCl 4 mg tablet 4 mg PO Q6H Qty: 10 0RF isosorbide dinitrate 10 mg tablet 10 mg PO TID Qty: 60 2RF Rx Instructions: allow nitrate-free interval of 12-14 hrs per 24-hr period Follow Up/Referrals: Marin Boggs MD [Primary Care Provider] - Stand Alone Forms: MyHealth Info Instructions
[2024-09-28] MEDS: ISOSORBIDE DINITRATE 10 MG TABLET PO (21:19)
--- NOTE | 2024-09-28 21:20 | ED.NURSE ---
Pt given 1, 10mg tab isosorbide before going home. Pt given 7 tabs to take home. Explained this to pt in detail. Pt does understand, directions were given in [place]. Pt discharged.
== END 2024-09-28 21:22 | disposition home or self-care (01) ==
LOC: ED 21:02
PROVIDERS: Emergency Provider Family Medicine; PCP Internal Medicine
DX: R13.10 Dysphagia, unspecified (principal)
CPT/HCPCS: 99283; A9270

== ENCOUNTER 2025-02-25 16:04 | Outpatient (CLI) | payer MEDICAID, SELFPAY ==
--- NOTE | 2025-02-25 16:20 | CRLHL7_ITS ---
For Patients: As a result of the Century Cures Act, medical imaging exams and procedure reports are released immediately into your electronic medical record. You may view this report before your referring provider. If you have questions, please contact your health care provider. INDICATION: BILATERAL SCREENING MAMMOGRAM, ASYMPTOMATIC 54 Y/O FEMALE COMPARISON: 11/28/19, 03/07/2018, 02/02/2015 TECHNIQUE: Digital mammogram in CC and MLO projections including computer-aided detection (CAD) and tomosynthesis. BREAST COMPOSITION: There are scattered areas of fibroglandular density. FINDINGS: No suspicious findings. ASSESSMENT: BI-RADS 2 Benign RECOMMENDATION: Annual screening mammogram. A lay language report of this examination will be provided to the patient. Dictated by: Les Hawkins MD @ 02/27/2025 11:49:32 (Electronically Signed)
== END 2025-02-25 16:05 | disposition home or self-care (01) ==
LOC: MAMMO 16:04
PROVIDERS: PCP Internal Medicine; Visit Provider Internal Medicine
DX: Z12.31 Encounter for screening mammogram for malignant neoplasm of breast (principal)
CPT/HCPCS: 77063; 77067; T1013

== ENCOUNTER 2025-07-24 17:03 | Emergency (ER) | payer MEDICAID, SELFPAY ==
--- OUTSIDE RECORDS SUMMARY | 2025-07-15 02:27 | XMS_ITS | Continuity of Care Document ---
Author Organization [facility] Address [address] [address] [place] [address] Phone Care Team Providers Care Ham Smoker Name Role Phone Sukumar Villela MD, Coy Ocasio Unavailabl e Allergies, Adverse Reactions, Alerts Substance Reaction Status Criticality No Known Allergies Active No Inform ation Medications Medication Instructions Dosage Effective Dates (start - stop) Status Comments lisinopril 10 mg tablet take 1 tablet by oral route every day 10 MG - Active omeprazole 40 mg capsule,delayed release take 1 capsule by oral route 2 times every day before a meal 40 MG - Active atorvastatin 20 mg tablet take 1 tablet by oral route every day 20 MG - Active isosorbide dinitrate 5 mg tablet take 1 tablet by oral route 2 times every day 5 MG - Active hydrochlorothiazide 25 mg tablet take 1 tablet by oral route every day 25 MG - Active levothyroxine 25 mcg capsule take 1 capsule by oral route every day 25 MCG - Active Procedures Procedure Date Established Level 3 Low Subsqt Inpt High Subsqt Inpt Moderate Peroral Endoscopic Myotomy Eso Balloon Distension Study Ugi Endo; Dx W/wo Collec Specm 25 Offic/outpt E&m Estab Moderate 25 Offic/outpt E&m Estab Mod-hi 2 25 Esophageal Motility Study Offic/outpt E&m Estab Mod-hi 4 24 Ugi Endo; W/balloon Dilat Esop 24 Ugi Endo; W/bx 1/mx Level Iv-surg Path Gross/micro 24 cancelled appt Office Cons New/estab Mod Advance Directives Directive Yes / No Effective Date File Name No Information Encounters Encounter Description Practice Location Reason(s) For Visit Diagnoses Date Provider Providers Copied on Encounter [facility], [address] [address], [place], [place], [id number], [place] tel:[phone] [facility] No Information 5 Sukumar Cespedes. [address] [facility], [address], [id number], [place]. tel:[phone] Established Level 3 Low [facility], [address] [address], [place], [place], [id number], [place] tel:[phone] [facility] GI Symptoms or Concerns (chief complaint) Achalasia 5 Constanza Hawkins. [address] [place] [address], [address], [id number], [place]. tel:[phone] Marin Boggs MD. tel:[phone] ng Provider: Referral Self, USE FOR SELF REFERRALS. Subsqt Inpt High [facility], [address] [address], [place], [place], [id number], [place] tel:[phone] [facility] No Information 5 Prateek Turner. [facility], [address], [id number], [place]. tel:[phone] Referring Provider: Yue Horton, [facility] [address], [address]. tel:[phone] [facility], [address] [address], [place], [id number], [place] tel:[phone] [facility] No Information 5 Constanza Hawkins. [address] [facility], [facility] [address], [place], [id number], [place]. tel:[phone] Referring Provider: Ross Osorio, [address] [facility] [address], [place], [address]. tel:[phone] [facility], [address] [address], [place] [facility], [id number], [place] tel:[phone] [facility] No Information Sukumar Cespedes. [address] [place] [address], [address], [id number], [place]. tel:[phone] [facility], [address] [address], [place] [facility], [id number], [place] tel:[phone] [facility] Achalasia of cardiaHelicob acter pylori [H. pylori] as the cause of diseases classified elsewhereAcha lasia of cardia Michelet Anthony. [address] [facility], [facility] [address], [place], [id number], [place]. tel:[phone] Marin Boggs MD. tel:[phone] ng Provider: Referral Self, USE FOR SELF REFERRALS. Offic/outpt E&m Estab Moderate [facility], [address] [address], [place] [facility], [id number], [place] tel:[phone] [facility] GI Symptoms or Concerns (chief complaint) Achalasia Constanza Hawkins. [address] [facility], [facility] [address], [place], [id number], [place]. tel:[phone] Referring Provider: Referral Self, USE FOR SELF REFERRALS. Offic/outpt E&m Estab Mod-hi 2 [facility], [address] [address], [place], [place], [id number], [place] tel:[phone] [facility] GI Symptoms or Concerns (chief complaint) Esophageal achalasiaHeli cobacter pylori [H. pylori] as the cause of diseases classified elsewhere 5 Kyaw Espino. [address] [place] [address], [id number], [place]. tel:[phone] Referring Provider: Referral Self, USE FOR SELF REFERRALS. [facility], [address] [address], [place], [place], [id number], [place] tel:[phone] [facility] No Information 5 Alanna Bustamante. [address] [place] [address], [id number], [place]. tel:[phone] [facility], [address] [address], [place], [place], [id number], [place] tel:[phone] [facility] No Information 5 Sukumar Cespedes. [address] [place] [address], [id number], [place]. tel:[phone] [facility], [address] [address], [place], [id number], [place] tel:[phone] [facility] Dysphagia, unspecified 5 Ailin Mccormick. [address] [place] [address], [id number], [place]. tel:[phone] Referring Provider: Niles Deluca MD, [address] [place] [address], [address]. tel:[phone] Offic/outpt E&m Estab Mod-hi 4 [facility], [address] [address], [place], [id number], [place] tel:[phone] [facility] GI Symptoms or Concerns (chief complaint) Dysphagia, unspecified typeHelicobac ter pylori [H. pylori] as the cause of diseases classified elsewhereDiet renetta counseling and surveillanceE levated blood-pressur e reading, without diagnosis of hypertension 4 Alanna Bustamante. [address], [id number], [place]. tel:[phone] Referring Provider: Referral Self, USE FOR SELF REFERRALS. [facility], [address] [address], [place], [id number], [place] tel:[phone] [facility] Dysphagia, unspecified type 4 Yosi Cage. [address] [place] [address], [id number], [place]. tel:[phone] [facility], [address] [address], [place], [id number], [place] tel:[phone] [facility] Esophageal dysphagiaOthe r gastritis without bleedingHelic obacter pylori [H. pylori] as the cause of diseases classified elsewhereOthe r dysphagia 4 Miguelina Joyce. [address] [place] [address], [id number], [place]. tel:[phone] Referring Provider: Referral Self, USE FOR SELF REFERRALS. [facility], [address] [address], [place], [id number], [place] tel:[phone] [facility] No Information 4 Yosi Cage. [address] [place] [address], [id number], [place]. tel:[phone] Referring Provider: Referral Self, USE FOR SELF REFERRALS. [facility], [address] [address], [place], [id number], [place] tel:[phone] [facility] No Information 4 Sukumar Cespedes. [address] [place] [address], [id number], [place]. tel:[phone] Office Cons New/estab Mod [facility], [address] [address], [place], [id number], [place] tel:[phone] [facility] GI Symptoms or Concerns (chief complaint) Dysphagia, unspecified typeDietary counseling and surveillance Yosi Cage. [address], [id number], [place]. tel:[phone] Referring Provider: Marin Paz, [address] [place] [address], [address]. tel:[phone] Family History Family Member Type Diagnosis Age At Onset Father Problem Alcoholism Son Problem Asthma Immunizations Vaccine Date Status Comments tetanus toxoid, reduced diphtheria toxoid, and acellular pertussis vaccine, adsorbed administered Note: [facility] b i-directional interface ; Source: Other Registry Influenza, split virus, trivalent, injectable, contains preservative administered Note: [facility] bi-direct ional interface ; Source: Other Registry Influenza, split virus, trivalent, injectable, contains preservative administered Note: [facility] bi-direct ional interface ; Source: Other Registry Afluria Qd administered Note: [facility] bi-directional interface ; Source: Other Registry Payers Payer name Insurance type Covered constitution party ID Authorbertoa nathaliemarina(s) Jarred [facility] [id number] Social History Type Description Quantity Date Captured Comments Sex Female Smoking Status No Information Chief Complaint And Reason For Visit No Information Reason For Referral Reason For Referral No Information Plan Of Treatment Date Type Action Status Goal Lifestyle education regardin g diet completed Goal Lifestyle education regardin g diet completed Referral Ordered: Xray Esophagus (Timed Barium Esophagram) Appointment date/timeframe: 12/24/2024 ordered Referral Ordered: Xray Esophagus (Esophagram, Barium Swallow Study) Appointment date/timeframe: 08/26/2024 ordered Referral Ordered: EGD With Dilation Appointment date/timeframe: 08/05/2024 ordered History Of Present Illness Encounter Date Complaint History Of Prese nt Illness GI Symptoms or Concerns 55-year- old female with achalasia type II for which she underwent an esophageal peroral endoscopic myotomy in June 24 and is here for follow-up.Overall the patient states that she has done very well and is very pleased with how she has progressed and improved in her symptoms. She states that her symptoms are regurgitation and vomiting and difficulty swallowing has completely gone away. She denies any dysphagia, no odynophagia, no regurgitation, weight has stabilized and no retrosternal pain. Overall she has been eating soft foods as well as liquids and has not had any problem whatsoever. She denies any melena hematochezia nausea vomiting diarrhea constipation or any other signs of alarm. GI Symptoms or Concerns 54-year- old female with a BMI 39.5 who has been having progressive dysphagia for which she has undergone high-resolution esophageal manometry as well as esophagram with changes consistent with achalasia type II who is here for further evaluation and treatment.Overall the patient states that she has had progressive dysphagia for the last 5+ years. She states that it has started gradually and eventually became more significant to the point that now she is struggling with every meal. She says that she will have regurgitation with every meal if she is not careful and dysphagia with every meal as well. When she has dysphagia she will get retrosternal pain with every meal and has lost approximately 20 pounds. Denies any melena hematochezia or other signs of alarm. [place] does not know has heard about any cases of Chagas disease. GI Symptoms or Concerns 54-year- old woman with type II achalasia and H. pylori who presents for follow-up.She recently had an esophageal manometry study which was consistent with type II achalasia. Prior to this she had an esophagram which showed distention in the proximal and mid portions with numerous tertiary contractions and corkscrewing of the distal esophagus. There is delayed transit of contrast through the esophagus and the barium tablet remained at the GE junction did not pass into the stomach during the duration of the study. She had an EGD 08/05/2024 which showed Hill grade 1 GE junction, gastritis which was H. pylori positive, and was interpreted as a Schatzki's ring at the GE junction. Balloon dilation was performed to 18 mm.She endorses dysphagia to both solids and liquids. She would be unable to drink a large glass of liquid, sugars are doing very slowly. She gets bland regurgitation throughout the day especially after eating solids.She previously lived in a semirural area of [place].She is accompanied today by her professional leveler. GI Symptoms or Concerns This is a 54-year-old Ivorian-speaking female with a past medical history of hypertension, hysterectomy and oophorectomy, cholecystectomy untreated H. pylori gastritis who comes in for follow-up of dysphagia.In discussion with the patient she describes that she has had dysphagia ongoing for 4 years. She describes it is progressively gotten worse. She also does describe some issues with swallowing pillsWe performed upper endoscopy on the 2023 which did show tight GE junction. Dilation was performed from 16 to 18 mm using a balloon. Patient notes that she did not get significant improvement. Eso bx negativeBarium contrast with pill study was performed in [place] yesterday. We do not have these results but she was discussed that the pill got stuck in her esophagus for at least some time as she has a very tight GE junction.Patient complains of ongoing dysphagia with solids and liquids worse with solids. She is scheduled for manometry in September. No other appointments are scheduled.During the EGD she did have H. pylori gastritis that was diagnosed. She was started omeprazole twice a day but not treated for H. pylori GI Symptoms or Concerns Jing Bailon is a pleasant 54-year-old female who presents to GI clinic today for consultation at the request of Dr Marin Boggs for evaluation of dysphagia.Visit was assisted by a telephone leveler.Patient states that she has been having trouble swallowing for the past several months. She states that when she eats solid food including bread, she will feel food sticking sensation in her upper chest and lower neck areas. Fluids and liquids are fine. She denies any food impaction symptoms and has not needed any urgent endoscopic procedures or ED visits for this. She did have a diagnostic EGD a few months ago which was reportedly normal. Unfortunately, we do not have records of this and it is unclear if esophageal biopsies were obtained. She states that she was told that her esophagus movement was abnormal and was given a medication to treat this. Based on her medication bag, it seems that she was given isosorbide dinitrate to help treat her symptoms. She states that the medication has not helped with her dysphagia symptoms at all. She also reports having phlegm production but denies any heartburn or overt reflux symptoms. No nausea, vomiting, odynophagia, abdominal pain, GI bleeding or weight loss. She denies any NSAIDs use, opioid use. No tobacco, alcohol or illicit drug use. No family history of GI malignancy. She states that she is up-to-date on her colon cancer screening. She has history of a cholecystectomy and total hysterectomy. Functional Status Date Functional Assessmen t No Information Instructions Date Instruction Additional Infor mation Gastritis Related to Helic obacter pylori [H. pylori] as the cause of diseases classified elsewhere -- La enfemedad que creo que usted tiene se llama Achalasia-- Te vamos hacer harley oriana para dario los doctores del esofago despues de la oriana en enro (el spagetti/fideo en la nariz) para decidir el tratmiento adequedo para usted--Por ahora entinta comer lo que puedes y puedes tomanr premier protein or ensure dos veces al deyanira Related to Dysphagia, unspecified type Lifestyle education regarding di et Related to Dietary counseling and surveillance It was a pleasure me eting you today, as we discussed in clinic:We will plan to do an upper endoscopy with empiric dilation and esophageal biopsies to further evaluate your difficulty swallowing symptoms. One of my team members will reach out to you to schedule this and provide instructions. I will also send a prescription for Omeprazole which you can take once daily before breakfast to see if it helps with your phlegm symptoms. Follow-up in clinic after the EGD. Related to Dysphagia, unspecified type Lifestyle education regarding di et Related to Dietary counseling and surveillance Assessments Type Assessment Date No Information Patient Care Teams Name Effective Dates (start - stop) Status Members No Information
--- OUTSIDE RECORDS SUMMARY | 2025-07-15 02:27 | XMS_ITS | Continuity of Care Document ---
Author Organization [facility] Address [address] [address] [place] [address] Phone Care Team Providers Care Staff Trainer Name Role Phone Sukumar Villela MD, oCy Ocasio Unavailabl e Allergies, Adverse Reactions, Alerts [...] Diagnoses Date Provider Providers Copied on Encounter [facility], [address] [address], [place], [id number], [place] tel:[phone] [facility] No Information 5 Sukumar Cespedes. [address] [facility], [address], [id number], [place]. tel:[phone] Established Level 3 Low [facility], [address] [address], [place], [place], [id number], [place] tel:[phone] [facility] GI Symptoms or Concerns (chief complaint) Achalasia 5 Constanza Hawkins. [address] [place] [address], [address], [id number], [place]. tel:[phone] Marin Boggs MD. tel:[phone] ng Provider: Referral Self, USE FOR SELF REFERRALS. Subsqt Inpt High [facility], [address] [address], [place], [id number], [place] tel:[phone] [facility] No Information 5 Prateek Turner. [facility], [address], [id number], [place]. tel:[phone] Referring Provider: Yue Horton, [facility] [address], [address]. tel:[phone] [facility], [address] [address], [place], [id number], [place] tel:[phone] [facility] No Information 5 Constanza Hawkins. [facility], [facility] [address], [place], [id number], [place]. tel:[phone] Referring Provider: Ross Osorio, [address] [facility] [address], [address]. tel:[phone] [facility], [address] [address], [facility], [id number], [place] tel:[phone] [facility] No Information Sukumar Cespedes. [address] [place] [address], [address], [id number], [place]. tel:[phone] [facility], [address] [address], [place] [place] [facility], [id number], [place] tel:[phone] [facility] Achalasia of cardiaHelicob acter pylori [H. pylori] as the cause of diseases classified elsewhereAcha lasia of cardia Michelet Anthony. [address] [facility], [facility] [address], [place], [id number], [place]. tel:[phone] Marin Boggs MD. tel:[phone] ng Provider: Referral Self, USE FOR SELF REFERRALS. Offic/outpt E&m Estab Moderate [facility], [address] [address], [place] [place], [id number], [place] tel:[phone] [facility] GI Symptoms or Concerns (chief complaint) Achalasia Constanza Hawkins. [address] [facility], [facility] [address], [place], [id number], [place]. tel:[phone] Referring Provider: Referral Self, USE FOR SELF REFERRALS. Offic/outpt E&m Estab Mod-hi 2 [facility], [address] [address], [place], [id number], [place] tel:[phone] [facility] GI Symptoms or Concerns (chief complaint) Esophageal achalasiaHeli cobacter pylori [H. pylori] as the cause of diseases classified elsewhere 5 Kyaw Espino. [address] [place] [address], [id number], [place]. tel:[phone] Referring Provider: Referral Self, USE FOR SELF REFERRALS. [facility], [address] [address], [place], [id number], [place] tel:[phone] [facility] No Information 5 Alanna Bustamante. [address] [place] [address], [id number], [place]. tel:[phone] [facility], [address] [address], [place], [id number], [place] tel:[phone] [facility] No Information 5 Sukumar Cespedes. [address] [place] [address], [id number], [place]. tel:[phone] [facility], [address] [address], [place], [id number], [place] tel:[phone] [facility] Dysphagia, unspecified 5 Ailin Mccormick. [address] [place] [address], [id number], [place]. tel:[phone] Referring Provider: Niles Deluca MD, [address] [place] [address], [address]. tel:[phone] Offic/outpt E&m Estab Mod-hi 4 [facility], [address] [address], [place], [id number], [place] tel:[phone] [facility] GI Symptoms or Concerns (chief complaint) Dysphagia, unspecified typeHelicobac ter pylori [H. pylori] as the cause of diseases classified elsewhereDiet renetta counseling and surveillanceE levated blood-pressur e reading, without diagnosis of hypertension 4 Alanna Bustamante. [address], [id number], [place]. tel:[phone] Referring Provider: Referral Self, USE FOR SELF REFERRALS. [facility], [address] [address], [place], [id number], [place] tel:[phone] [facility] Dysphagia, unspecified type 4 Yosi Cage. [address] [place] [address], [id number], [place]. tel:[phone] [facility], [address] [address], [place], [id number], [place] tel:[phone] [facility] Esophageal dysphagiaOthe r gastritis without bleedingHelic obacter pylori [H. pylori] as the cause of diseases classified elsewhereOthe r dysphagia 4 Miguelina Joyce. [address] [place] [address], [id number], [place]. tel:[phone] Referring Provider: Referral Self, USE FOR SELF REFERRALS. [facility], [address] [address], [place], [id number], [place] tel:[phone] [facility] No Information 4 Yosi Cage. [address] [place] [address], [id number], [place]. tel:[phone] Referring Provider: Referral Self, USE FOR SELF REFERRALS. [facility], [address] [address], [place], [id number], [place] tel:[phone] [facility] No Information 4 Sukumar Cespedes. [address] [place] [address], [id number], [place]. tel:[phone] Office Cons New/estab Mod [facility], [address] [address], [place], [place], [id number], [place] tel:[phone] [facility] GI Symptoms or Concerns (chief complaint) Dysphagia, unspecified typeDietary counseling and surveillance Yosi Cage. [address], [id number], [place]. tel:[phone] Referring Provider: Marin Paz, [address] [place] [address], [address]. tel:[phone] Family History Family Member Type Diagnosis Age [...] Registry Payers Payer name Insurance type Covered green party ID Authorbertoa nathaliemarina(s) Jarred [facility] [id number] Social History Type Description Quantity Date Captured [...] other signs of alarm. [place] is from [place] previously lived in a semirural area of [place].She is accompanied today by her professional molding process technician. GI Symptoms or Concerns This is a 54-year-old Citizen Of [place]-speaking female with a past medical history of [...] contrast with pill study was performed in [place] yesterday. We do not have these results [...] of dysphagia.Visit was assisted by a telephone molding process technician.Patient states that she has been having trouble [...]
--- OUTSIDE RECORDS SUMMARY | 2025-07-24 17:06 | XMS_ITS | Clinical Summary ---
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 11/07/2024 Active isosorbide dinitrate (ISORDIL) 20 mg tablet Take 10 mg by mouth four times daily. 11/25/2024 Active omeprazole (PRILOSEC) 40 mg Delayed-Release capsule Take 40 mg by mouth two times daily. 11/11/2024 Active levothyroxine (SYNTHROID) 25 mcg tablet Take 1 Tablet by mouth once daily. 11/07/2024 Active ondansetron (ZOFRAN) 4 mg tablet Take 4 mg by mouth every 6 hours if needed. 07/24/2024 Active lisinopril-hydr ochlorothiazide 20-12.5 mg tablet (PRINZIDE) Take 1 Tablet by mouth once daily. 05/12/2025 Active pantoprazole (PROTONIX) 40 mg delayed-release tabletIndicatio ns:Achalasia Take 1 Tablet (40 mg) by mouth two times daily before meals. 60 Tablet 06/25/2025 11:24 AM CDT 06/25/2025 Active amoxicillin-cla vulanate (AUGMENTIN) 500-125 mg tabletIndicatio ns:PROPHYLAXIS Take 1 Tablet by mouth every 12 hours for 7 days. 14 Tablet 06/25/2025 11:24 AM CDT 06/25/2025 Active Problems Problem Noted Date Diagnosed Date Achalasia 06/24/2025 Hypertension 06/24/2025 Hyperlipidemia 06/24/2025 GERD (gastroesophageal reflux disease) Hypothyroidism 06/24/2025 Encounters Date Type Department Care Team Description 06/24/2025 8:11 AM CDT Anesthesia Event [facility] [address] [place] [address] Campos Medina MD 06/24/2025 7:20 AM CDT - 06/24/2025 9:20 AM CDT Surgery [facility] [address] [place] [address] Ross Chance MD PERORAL ENDOSCOPIC MYOTOMY 06/24/2025 6:37 AM CDT - 06/26/2025 1:55 PM CDT Hospital Encounter [facility] [address] [place] [address] Ross Chance MD Barnard, Kayla Julia, PA [facility] [place] [place] [facility] Of Achalasia (Primary Dx) Discharge Disposition: Home Self Care 06/24/2025 Travel 06/20/2025 Travel from Last 3 Months Social History Tobacco Use Types Packs/Day Years Used Date Smoking Tobacco: Never Smokeless Tobacco: Never Tobacco Cessation:Counseling Given: Not Answered Alcohol Use Standard Drinks/Week Comments Never 0 (1 standard drink = 0.6 oz pur e alcohol) Social Connections Answer Date Recorded Do you often feel lonely or isolated from those around you? 0 06/26/2025 Financial Resource Strain Answer Date R ecorded Difficulty of Paying Living Expenses 3 06/26/2025 Difficulty of Paying Living Expenses Not on file 06/26/2025 Food Insecurity Answer Date Recorded Do you worry your food will run out before you are able to buy more? 1 06/26/2025 Transportation Needs Answer Date Record ed Does lack of transportation keep you from medica l appointments? 1 06/26/2025 Does lack of transportation keep you from work, meetings or getting things that you need? 1 06/26/2025 Housing Stability Answer Date Recorded What is your housing situation today? 1 06/26/2025 Interpersonal Safety Answer Date Record ed Are you being hit, kicked, p ushed or yelled at (see row info)? No 06/26/2025 Interpersonal Safety Abuse 12 - 18 Not on file 06/26/2025 Interpersonal Safety Ambulatory Vulnerability No t on file 06/26/2025 Utilities Answer Date Recorded Do you have trouble paying f or utilities (for example, heat, electricity, water, phone)? 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[employer] Gender Identity Not on file Sexual Orientation Not on file Obstetrics History Last Filed Vital Signs Vital Sign Reading Time Taken Comments Blood Pressure 141/70 06/26/2025 8:40 AM CDT Pulse 68 06/26/2025 8:40 AM CDT Temperature 37.6 C (99.6 F) 06/26/2025 8:40 AM CDT Respiratory Rate 16 06/26/2025 8:40 AM CDT Oxygen Saturation 93% 06/26/2025 8:40 AM CDT Inhaled Oxygen Concentration - - Weight 100.7 kg (222 lb) 06/20/2025 9:09 AM CDT Height 153.7 cm (5' 0.5) 06/20/2025 9:09 AM CDT Body Mass Index 42.64 06/20/2025 9:09 AM CDT Plan of Treatment Health Maintenance Due Date Last Done Comments Tetanus booster 1980 Depression screening for age 12+ 1981 HIV for age 15-65 1984 BMI (ht and wt on same day) for age 18+ 1987 Hepatitis C screening for age 18-79 1987 Hepatitis B series for 19+ ( 1 of 3 - 19+ 3-dose series) 1988 Pap test for age 21-65 1990 Colonoscopy through age 75 2014 Mammogram for age 45-75 2014 Pneumococcal series for age 50+ (1 of 1 - PCV) 2019 Zoster (shingles) series for age 50+ (1 of 2) 2019 Influenza Vaccine (#1) 2025 Lipids for age 45-75 04/10/2029 04/10/2024, 11/15/19 23 RSV vaccine for adults or pr egnancy (1 - 1-dose 75+ series) 2044 Procedures Procedure Name Priority Date/Time Associated Diagnosis Comments CT CHEST ABDOMEN W LUIS MIGUEL 06/25/2025 1: 11 PM CDT BASIC METABOLIC PANEL Today 06/25/2025 11:26 AM CDT CBC W PLT NO DIFF Today 06/25/2025 11: 26 AM CDT XR ESOPHAGUS WATER SOLUBLE LUIS MIGUEL 06/25/2025 7:34 AM CDT ENDOTRACHEAL TUBE Routine 06/24/2025 9:0 2 AM CDT ENDOTRACHEAL TUBE Routine 06/24/2025 9:0 2 AM CDT PERORAL ENDOSCOPIC MYOTOMY Tier 3: within 90 days 06/24/2025 8:00 AM CDT see note ENDOSCOPY 06/24/2025 7:05 AM CDT LIPID PANEL Routine 04/10/2024 1:11 PM CDT from Last 3 Months or Most Recently Relevant to Health Maintenance Results * CT CHEST ABDOMEN W (06/25/2025 1:11 PM CDT) Anatomical Region Laterality Modality Abdomen, Pelvis, AORTA, LIVER, SPLEEN, CHEST Computed Tomography 06/25/2025 2:43 PM CDT Narrative 06/25/2025 2:43 PM CDT For Patients: As a result of the Century Cures Act, medical imaging exams and procedure reports are released immediately into your electronic medical record. You may view this report before your referring provider. If you have questions, please contact your health care provider. INDICATION : Pain and vomiting after endoscopic myotomy for achalasia. TECHNIQUE : CT scan chest and abdomen IV contrast 100 cc Omnipaque. The study was performed after a upper GI esophagram study with Omnipaque in the GI tract. COMPARISON: Esophagram upper GI same date. FINDINGS: Esophagus: Patulous esophagus with the myotomy clips in the lower esophageal segment. No extravasation of contrast. Stomach: Possible mild pneumatosis of the gastric wall. No extravasation of contrast. Some of the areas of radiolucency at the gastric wall could also be related to some gas in the rugal folds. Miscellaneous upper abdomen: Extraluminal air. Left upper quadrant subphrenic small bubbles. Subphrenic space around the liver. Mediastinum: Small pneumomediastinum. No adenopathy. Small bowel: Normal caliber. Liver: Low dense fatty infiltration. No mass lesion. The biliary tree is normal caliber. Surgically absent gallbladder. Metallic clips. Spleen pancreas adrenal glands kidneys: Unremarkable. Lymph nodes: No adenopathy. Lungs and pleura: Dependent atelectasis in the lower lobes. Bilateral pleural effusions. Miscellaneous chest: Very small amounts of soft tissue emphysema in the thoracic outlet and left supraclavicular region. IMPRESSION : 1. Status post endoscopic myotomy. No contrast leak. No contrast leak noted on the upper GI. 2. Extraluminal air which can occur following this procedure. Upper abdomen and minimal pneumomediastinum. 3. Possible small amount of gastric pneumatosis if present this could also be related to the procedure. Could consider a follow-up CT scan to verify resolution. 4. Postprocedure atelectasis and trace pleural fluid at the lung bases. Please note that all CT scans at this facility use dose modulation, iterative reconstruction, and/or weight-based dosing when appropriate to reduce radiation dose to as low as reasonably achievable. Dictated by Enrico Longoria MD @ 06/25/2025 2:43:07 PM (Electronically Signed) Procedure Note Enrico Longoria MD - 06/25/2025 For Patients: As a result of the 21st Century Cures Act, medical imagingexams and procedure reports are released immediately into your electronicmedical record. You may view this report before your referring provider.If you have questions, please contact your health care provider. INDICATION : Pain and vomiting after endoscopic myotomy for achalasia. TECHNIQUE : CT scan chest and abdomen IV contrast 100 cc Omnipaque. The study wasperformed after a upper GI esophagram study with Omnipaque in the GItract. COMPARISON: Esophagram upper GI same date. FINDINGS: Esophagus: Patulous esophagus with the myotomy clips in the lower esophageal segment. No extravasation of contrast. Stomach: Possible mild pneumatosis of the gastric wall. No extravasationof contrast. Some of the areas of radiolucency at the gastric wall couldalso be related to some gas in the rugal folds. Miscellaneous upper abdomen: Extraluminal air. Left upper quadrant subphrenic small bubbles. Subphrenic space around the liver. Mediastinum: Small pneumomediastinum. No adenopathy. Small bowel: Normal caliber. Liver: Low dense fatty infiltration. No mass lesion. The biliary tree isnormal caliber. Surgically absent gallbladder. Metallic clips. Spleen pancreas adrenal glands kidneys: Unremarkable. Lymph nodes: Noadenopathy. Lungs and pleura: Dependent atelectasis in the lower lobes. Bilateral pleural effusions. Miscellaneous chest: Very small amounts of soft tissue emphysema in the thoracic outlet andleft supraclavicular region. IMPRESSION : 1. Status post endoscopic myotomy. No contrast leak. No contrast leaknoted on the upper GI. 2. Extraluminal air which can occur following this procedure. Upperabdomen and minimal pneumomediastinum. 3. Possible small amount of gastric pneumatosis if present this could alsobe related to the procedure. Could consider a follow-up CT scan to verify resolution. 4. Postprocedure atelectasis and trace pleural fluid at the lung bases. Please note that all CT scans at this facility use dose modulation,iterative reconstruction, and/or weight-based dosing when appropriate toreduce radiation dose to as low as reasonably achievable. Dictated by Enrico Longoria MD @ 06/25/2025 2:43:07 PM (Electronically Signed) Yue Chandra NP CT Final Result * CBC W PLT NO DIFF (06/25/2025 11:26 AM CDT) WHITE BLOOD COUNT 6.9 4.5 - 11.0 thou/cu mm 06/25/2025 11:48 AM CDT [facility] RED BLOOD COUNT 4.20 4.00 - 5.20 mil/cu mm 06/25/2025 11:48 AM CDT [facility] HEMOGLOBIN 12.2 12.0 - 16.0 g/dL 06/25/2025 11:48 AM CDT [facility] HEMATOCRIT 37.2 33.0 - 51.0 % 06/25/2025 11:48 AM CDT [facility] MCV 89 80 - 100 fL 06/25/2025 11:48 AM CDT [facility] MCH 29.0 26.0 - 34.0 pg 06/25/2025 11:48 AM CDT [facility] MCHC 32.8 32.0 - 36.0 g/dL 06/25/2025 11:48 AM CDT [facility] RDW 13.0 11.5 - 15.5 % 06/25/2025 11:48 AM CDT [facility] PLATELET COUNT 179 140 - 440 thou/cu mm 06/25/2025 11:48 AM CDT [facility] MPV 9.8 6.5 - 11.0 fL 06/25/2025 11:48 AM CDT [facility] NRBC 0.0 % 06/25/2025 11:48 AM CDT [facility] ABS NRBC 0.0 thou /cu mm 06/25/2025 11:48 AM CDT [facility] Blood BLOOD SPECIMEN / Unknown Butterfly / Unknown 06/25/2025 11:26 AM CDT 06/25/2025 11:40 AM CDT Yue Chandra NP HEMATOLOGY Final Result [facility] [address] [place] [address], * (ABNORMAL) BASIC METABOLIC PANEL (06/25/2025 11:26 AM CDT) SODIUM 145 136 - 145 mmol/L 06/25/2025 12:18 PM CDT [facility] POTASSIUM 4.1 3.5 - 5.1 mmol/L 06/25/2025 12:18 PM CDT [facility] CHLORIDE 108(H) 98 - 107 mmol/L 06/25/2025 12:18 PM CDT [facility] CO2,TOTAL 28 22 - 29 mmol/L 06/25/2025 12:18 PM CDT [facility] ANION GAP 9 5 - 18 06/25/2025 12:18 PM CDT [facility] GLUCOSE 120(H) 70 - 99 mg/dL 06/25/2025 12:18 PM CDT [facility] CALCIUM 8.9 8.8 - 10.4 mg/dL 06/25/2025 12:18 PM CDT [facility] Comment: Reference ranges for this test were updated on 07/23/2024 to reflect our healthy population more accurately. Reference range changes are not retroactively applied to results, but previous results using the same methodology can be interpreted in the context of the new reference range. BUN 14 6 - 20 mg/dL 06/25/2025 12:18 PM CDT [facility] CREATININE 0.87 0.50 - 0.90 mg/dL 06/25/2025 12:18 PM CDT [facility] BUN/CREAT RATIO 16 10 - 20 12:18 PM CDT [facility] eGFR 78(L) >90 mL/min/1. 73m2 06/25/2025 12:18 PM CDT [facility] Comment:As of 2021, eG FR is calculated by the CKD-EPI creatinine equation without race adjustment. eGFR can be influenced by muscle mass, exercise, and diet. The reported eGFR is an estimation only and is only applicable if the renal function is stable. Blood BLOOD SPECIMEN / Unknown Butterfly / Unknown 06/25/2025 11:26 AM CDT 06/25/2025 11:41 AM CDT us Yue Chandra NP CHEMISTRY Final Result [facility] [address] [place] [address], [place] * XR ESOPHAGUS WATER SOLUBLE (06/25/2025 7:34 AM CDT) Anatomical Region Laterality Modality Esophagus Digital Radiogra phy Impressions 06/25/2025 9:01 AM CDT Status post endoscopic myotomy for achalasia. No signs for esophageal leak. Narrative 06/25/2025 9:01 AM CDT INDICATION Endoscopic myotomy achalasia TECHNIQUE Esophagus single contrast Omnipaque Fluoroscopy x 6 seconds Findings: Esophagus: Endoscopic clips at the distal third of the esophagus with no leak. GE junction: Patent Stomach:. Miscellaneous: Linear atelectasis or scarring left lung base. us Ross Rehman MD FLUOROSCOPY Fin al Result * HCHG TUBE PR1, HCHG STYLET PR1 (06/24/2025 9:02 AM CDT) Narrative Cristiano Li CRNA - 06/24/2025 9:02 AM CDT Cristiano Li CRNA 06/24/2025 9:03 AM Procedure: ETT Patient location during procedure: OR ETT Properties Mask Ventilation: not attempted Final Technique: rapid sequence induction Type: straight Location: oral Cuffed: yes Tube Size: 7.0 mm Stylet: yes Laryngoscope Blade: Mac Blade Size: 3 Cormack-Lehane Grade View: 1 Insertion Attempts: 1 Placement Verification: auscultation, end tidal CO2 and symmetrical chest wall movement Assessment: pharynx clear, atraumatic and dentition unchanged Secured at: 22 Measured From: lips Difficulty: 0 (not difficult) Campos Medina MD ANESTHESIA PX NOTE O RDERABLES Final Result * ENDOSCOPY (06/24/2025 7:05 AM CDT) 06/24/2025 7:05 AM CDT Narrative Transcriptions Ross Chance MD - 06/24/2025 10:03 AM CDT [facility] Patient Name: Jing Bailon Procedure Date: 06/24/2025 Gender: Female Date of : 1970 Admit Type: Ambulatory Procedure: Peroral Endoscopic Myotomy (POEM) Proceduralist: Ross Rehman MD - [facility] Referring MD: Ross Rehman MD Indications/Pre-Op Diagnosis: For therapy of Type II achalasia Medications: Monitored Anesthesia Care, GeneralAnesthesia Procedure Description: After obtaining informed consent, the endoscope was passed underdirect vision. Throughout the procedure, the patient's blood pressure,pulse, and oxygen saturations were monitored continuously. The endoscope [id number] was introduced through the mouth, and advanced tothe second part of duodenum. The endoscopic myotomy was accomplishedwithout difficulty. The patient tolerated the procedure well. Complications: No immediate complications. Estimated Blood Loss & Specimen: Estimated blood loss: none. Findings: No appreciable esophageal motility was noted. In addition, ahypertonic lower esophageal sphincter was found. There was moderate resistanceto endoscope advancement into the stomach. The Z-line was regular. The gastroesophageal junction and cardia were normal on retroflexed view. Preparations were made for peroral endoscopic myotomy (POEM). The esophagus was cleaned and irrigated using saline and suctioned. Mucosotomy followed by myotomy were performed in a posterior (5o'clock) orientation. First, a submucosal injection of a solution of methylene blue and saline was used to lift the mucosa at the site of theinitial mucosotomy. The initial mucosal incision was made longitudinally starting at 29 to 31 cm from the incisors using a HybridKnife I-Type. Next, the endoscope with a clear cap was used to enter into the submucosal tunnel. The submucosal tunnel was then further created by continued dissection. The submucosal tunnel was extended to 40 cmfrom the incisors which included extension into the cardia by 2 cm. The myotomy was started at 32 cm from the incisors using a HybridKnife I-Type to perform a full thickness myotomy (in an anteriororientation). The myotomy was extended to 40 cm from the incisors which included extension into the cardia by 2 cm. Intra procedure bleeding wasminimal. A small Coagrasper was used effectively for hemostasis. Hemostasiswas successfully accomplished throughout the procedure. After completionof the myotomy, there was no evidence of bleeding noted on theinspection of the myotomy edges and submucosal tunnel. The myotomy wassuccessfully performed. The muscular division was complete. A solution ofbacitracin and saline was placed into the tunnel prior to closure. The mucosal entrance to the submucosal tunnel was closed using 9 endoscopicclips. With the patient in the supine position, an 8 cm long 3 mm diameter functional lumen imaging probe (FLIP), with a volume-based barostatbag, was placed at the lower esophageal sphincter using endoscopic visualization for the pre-intervention and post-interventionevaluation of achalasia. Diagnostic Measurements #1: Saline was infused into the bag to a volume of 40 mL. The observed distensibility at the apparent sphincter was approximately 0.9 mm2/mmHg with a maximum observed diameter of 9.1 mm. FLIP topography demonstrated absentcontractility. Diagnostic Measurements #2: Saline was infused into the bag to avolume of 50 mL. The observed distensibility at the apparent sphincter was approximately 1.2 mm2/mmHg with a maximum observed diameter of 11.8mm. FLIP topography demonstrated absent contractility. In summary, FLIP topography demonstrated absent contractility. Following the intervention, repeat assessment was performed at the same site. Post-intervention Measurements: Saline was infused into the bag to a volume of 40 mL. The observed distensibility at the apparentsphincter was approximately 3.3 mm2/mmHg with a maximum observed diameter of14.1 mm, [id number]. FLIP topography demonstrated absent contractility. Thebag was deflated and the catheter was withdrawn. The time to perform the submucosal tunneling was 22 minutes. The time to perform the myotomywas 13 minutes. The time to perform closure of the tunnel opening was 9 minutes. Total POEM duration was 44 minutes. The entire examined stomach was normal. The duodenal bulb, first portion of the duodenum and second portionof the duodenum were normal. Impressions/Post-Op Diagnosis: - The esophageal examination as well as the Endoflip testing was consistent with achalasia. A full-thickness posterior incision esophageal peroral endoscopic myotomy was performed. - Normal stomach. - Normal duodenal bulb, first portion of the duodenum and secondportion of the duodenum. - Peroral endoscopic myotomy (POEM) was performed. - FLIP imaging performed. Consistent with reduced esophago-gastric junction opening and abnormal contractility of the esophagus.Confirms manometric findings of type II achalasia. - No specimens collected. Recommendation: - Strict NPO (order placed) - Admit to observation under hospitalist service - Continue Zosyn IV (order placed) - Protonix IV twice daily (order placed) - Pain protocol ordered - Esophagram in AM to evaluate for leak at entry point (orderplaced) - GI will follow Ross Rehman MD 06/24/2025 10:03:08 AM This report has been signed electronically. Note Initiated On: 06/24/2025 7:05 AM us Ross Rehman MD PROCEDURE ORD Fin al Result * (ABNORMAL) LIPID PANEL (04/10/2024 1:11 PM CDT) CHOLESTEROL,TOTAL 130 100 - 199 mg/dL 04/11/2024 2:48 PM CDT [facility] Comment: Cholesterol, Total Reference Ranges Desirable <200 mg/dL Borderline 200-239 mg/dL High >=240 mg/dL TRIGLYCERIDES 155(H) <150 mg/dL 04/11/2024 2:48 PM CDT [facility] HDL CHOLESTEROL 46 >40 mg/dL 2:48 PM CDT [facility] NON-HDL CHOLESTEROL 84 <145 mg/dl 04/11/2024 2:48 PM CDT [facility] CHOL/HDL RATIO 2.83 <4.50 04/11/2024 2:48 PM CDT [facility] LDL CHOLESTEROL 53 <=130 mg/dL 04/11/2024 2:48 PM CDT [facility] VLDL CHOLESTEROL 31(H) <=30 mg/dL 04/11/2024 2:48 PM CDT [facility] PROVIDER ORDERED STATUS RANDOM 04/11/2024 2:48 PM CDT [facility] Blood BLOOD SPECIMEN / Unknown 04/10/2024 1:11 PM CDT 04/11/2024 2:09 PM CDT us Gabrielle Avalos RN, ELECTROPHYSIOLOGIST CHEMISTRY Final Result [facility] [address] [place] [address], from Last 3 Months or Most Recently Relevant to Health Maintenance Insurance [facility] Advance Directives * Full Code (Latest Code Status on File) Date Activated Date Inactivated Comments 06/24/2025 6:45 AM 06/26/2025 4:01 PM Question Answer Comments Code Status Discussion: Reviewed Preferences Care Teams Shirt Ironer Relationship Specialty Start Date End Date None . PCP - General 12/27/24
[2025-07-24 17:18] VITALS: BP 182/103; PULSE 82; RESP 20; TEMP 36.7; O2SAT 97
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
== END 2025-07-24 17:45 | disposition home or self-care (01) ==
LOC: ED 17:46
PROVIDERS: Emergency Provider Emergency Medicine Emergency Medical Services; PCP Internal Medicine
DX: T21.22XA Burn of second degree of abdominal wall, initial encounter (principal); T31.0 Burns involving less than 10% of body surface; X10.1XXA Contact with hot food, initial encounter
CPT/HCPCS: 99283; 99284